=== PATIENT | male | born 1945 | race African-American/Black ===

== ENCOUNTER 2017-03-13 02:08 | Emergency (ER) | payer BC, OTHER ==
[~2017-03-13] VITALS: Ht 180.3 cm; Wt 131.5 kg
[2017-03-13 02:08] VITALS: BP_SYST 195
[~2017-03-13 02:08] MED LIST: ALBUTEROL
[2017-03-13 02:45] VITALS: BP_SYST 178
== END 2017-03-13 02:45 | disposition home or self-care (01) ==
LOC: SED 02:08
DX: K11.8 Other diseases of salivary glands (principal); J45.909 Unspecified asthma, uncomplicated
CPT/HCPCS: 99283

== ENCOUNTER 2018-02-19 22:31 | Emergency (ER) | payer BC, OTHER ==
[~2018-02-19] VITALS: Ht 180.3 cm; Wt 124.7 kg
[2018-02-19 22:39] VITALS: BP_SYST 160
[2018-02-19] MEDS: MORPHINE 4 MG/ML INJ. SYRINGE IM ONE (23:04)
[2018-02-20] MEDS: DIAZEPAM 5 MG TABLET (VALIUM) PO ONE (00:22)
[2018-02-20 00:23] VITALS: BP_SYST 160
== END 2018-02-20 00:23 | disposition home or self-care (01) ==
LOC: SED 22:31
DX: M79.604 Pain in right leg (principal); J45.909 Unspecified asthma, uncomplicated; I10 Essential (primary) hypertension
CPT/HCPCS: 93971; 96372; 99284; J2270

== ENCOUNTER 2019-02-07 18:00 | Emergency (ER) | payer BC, OTHER ==
[~2019-02-07] VITALS: Ht 180.3 cm; Wt 120.2 kg
[2019-02-07 18:22] VITALS: BP_SYST 168
--- NOTE | 2019-02-07 18:27 | NUR ---
Patient to [facility] chair for evaluation. Side rails up. Report given to perico Scales
--- NOTE | 2019-02-07 18:27 | NUR ---
LORIE George at bedside examining patient.
--- NOTE | 2019-02-07 18:30 | NUR ---
Patient transported to radiology via WC, accompanied by rad.
--- NOTE | 2019-02-07 18:43 | NUR ---
pt arrives from home w/ c/o chest congestion and cough x 1 week. Pt is currently afebrile. Nop other c/o at the moment
--- NOTE | 2019-02-07 19:00 | NUR ---
Patient given written and verbal discharge instructions and verbalizes understanding. ER MD discussed with patient the results and treatment provided. Patient in stable condition. ID arm band removed. Rx of Promethazine w/Codeine given. Patient educated on pain management and to follow up with PMD. Pain Scale 0. Opportunity for questions provided and answered. Medication side effect fact sheet provided.
== END 2019-02-07 19:00 | disposition home or self-care (01) ==
LOC: SED 18:00
DX: J06.9 Acute upper respiratory infection, unspecified (principal); J45.909 Unspecified asthma, uncomplicated; I10 Essential (primary) hypertension; E07.9 Disorder of thyroid, unspecified
CPT/HCPCS: 71045; 99283

== ENCOUNTER 2019-03-16 05:59 | Emergency (ER) | payer OTHER ==
[~2019-03-16] VITALS: Ht 180.3 cm; Wt 74.8 kg
[2019-03-16 06:10] VITALS: BP_SYST 160
--- NOTE | 2019-03-16 06:10 | NUR ---
Pt placed to ER bed 07. Pt c/o stiffness to neck, back, and shoulder x 1 week. Pt unable to sleep r/t pain. Pt states pain is better when sitting up or moving around. Lying flat makes pain worse. Denies injury or trauma.
--- NOTE | 2019-03-16 06:15 | NUR ---
Dr. George at bedside.
[2019-03-16 06:30] VITALS: BP_SYST 152
--- NOTE | 2019-03-16 06:30 | NUR ---
Patient given written and verbal discharge instructions and verbalizes understanding. ER MD discussed with patient the results and treatment provided. Patient in stable condition. ID arm band removed. Rx of Flexeril and Naproxen given. Patient educated on pain management and to follow up with PMD. Pain Scale 2/10. Opportunity for questions provided and answered. Medication side effect fact sheet provided.
== END 2019-03-16 06:30 | disposition home or self-care (01) ==
LOC: SED 05:59
DX: S16.1XXA Strain of muscle, fascia and tendon at neck level, initial encounter (principal); J45.909 Unspecified asthma, uncomplicated; I10 Essential (primary) hypertension; X50.9XXA Other and unspecified overexertion or strenuous movements or postures, initial encounter; Y93.89 Activity, other specified; Y92.89 Other specified places as the place of occurrence of the external cause; Y99.8 Other external cause status
CPT/HCPCS: 99283

== ENCOUNTER 2019-05-05 18:41 | Emergency (ER) | payer OTHER ==
[~2019-05-05] VITALS: Ht 180.3 cm; Wt 117.9 kg
[2019-05-05 19:34] VITALS: BP_SYST 156
[2019-05-05] MEDS ORDERED: ALBU8.5H8 INH (19:43)
[2019-05-05] MEDS ORDERED: AMLO5TAB4 PO (19:43)
[2019-05-05] MEDS ORDERED: LEVO100T9 PO (19:43)
--- NOTE | 2019-05-06 00:35 | NUR ---
Pt ambulatory to bed 4 for evaluation
--- NOTE | 2019-05-06 00:44 | NUR ---
Dr. Dugan bedside for pt eval
--- NOTE | 2019-05-06 00:50 | NUR ---
Pt BIB family to ED seeking evaluation of a 4-5 week history of persistent mild, non-radiating, sinus pain associated with sore throat, nasal congestion, and cough productive of clear phlegm. He reports that he has been using Flonase without improvement of his symptoms. He also reports that he sleeps with the heater on which makes his symptoms feel worse
[2019-05-06 01:10] VITALS: BP_SYST 148
--- NOTE | 2019-05-06 01:10 | NUR ---
Patient given written and verbal discharge instructions and verbalizes understanding. ER MD discussed with patient the results and treatment provided. Patient in stable condition. ID arm band removed. Patient educated on pain management and to follow up with PMD. Pain Scale 0/10 Opportunity for questions provided and answered.
== END 2019-05-06 01:10 | disposition home or self-care (01) ==
LOC: SED 18:41
DX: J32.9 Chronic sinusitis, unspecified (principal); R09.81 Nasal congestion; J45.909 Unspecified asthma, uncomplicated; I10 Essential (primary) hypertension; E03.9 Hypothyroidism, unspecified; Z79.899 Other long term (current) drug therapy
CPT/HCPCS: 99281; 99283

== ENCOUNTER 2020-06-02 00:48 | Emergency (ER) | payer OTHER ==
[~2020-06-02] VITALS: Ht 177.8 cm; Wt 108.9 kg
[~2020-06-02 00:48] MED LIST changes: +ALBU8.5H8 INH; -ALBUTEROL; +AMLO5TAB4 PO; +LEVO100T9 PO
[2020-06-02 01:00] VITALS: BP_SYST 150
[2020-06-02] MEDS ORDERED: NACL 0.9% 1,000 ML IV ONE (01:15)
[2020-06-02 01:38] LABS: BASOPHILS % (AUTO) 0.8 % (0.0-2.0); EOSINOPHILS # (AUTO) 0.1 K/uL (0.0-0.4); EOSINOPHILS % (AUTO) 2.2 % (0.0-4.0); HEMATOCRIT 42.7 % (36-54); LYMPHOCYTES # (AUTO) 1.6 K/uL (1.0-5.5); LYMPHOCYTES % (AUTO) 28.2 % (20.5-51.5); MEAN CORPUSCULAR HEMOGLOBIN 30 pg (27-31); MEAN CORPUSCULAR HGB CONC 33 % (32-36); MEAN CORPUSCULAR VOLUME 90 fL (79.0-98.0); MONOCYTES # (AUTO) 0.6 K/uL (0.0-1.0); MONOCYTES % (AUTO) 11.1 % (1.7-9.3); NEUTROPHILS # (AUTO) 3.2 K/uL (1.8-7.7); NEUTROPHILS % (AUTO) 57.7 % (40.0-70.0); PLATELET COUNT (AUTO) 199 K/uL (130-430); RED BLOOD CELL COUNT(AUTO) 4.72 MIL/uL (4.2-6.2); RED CELL DISTRIBUTION WIDTH 12.8 % (9.0-15.0); WHITE BLOOD COUNT (AUTO) 5.6 K/uL (4.8-10.8)
[2020-06-02 01:50] LABS: ANION GAP 8 (5-15); CALCIUM 8.8 mg/dL (8.4-11.0); CHLORIDE 103 mmol/L (98-107); CREATININE 1.04 mg/dL (0.55-1.30); GLUCOSE 123 mg/dL (70-99); POTASSIUM 4.3 mmol/L (3.5-5.1); SODIUM SERUM 137 mmol/L (136-145); UREA NITROGEN, BLOOD 14 mg/dL (8-21)
[2020-06-02 02:04] LABS: ALANINE AMINOTRANSFERASE 31 U/L (12-78); ALBUMIN 3.7 g/dL (3.4-4.8); ASPARTATE AMINOTRANSFERASE 22 U/L (10-37); THYROID STIMULATING HORMONE 0.55 uIu/mL (0.36-3.74); TOTAL BILIRUBIN 0.7 mg/dL (0.0-1.0)
[2020-06-02 02:13] LABS: BILIRUBIN,URINE NEGATIVE (NEGATIVE); BLOOD, URINE NEGATIVE (NEGATIVE); CLARITY/URINE CLEAR (CLEAR); COLOR,URINE YELLOW (YELLOW); GLUCOSE,URINE NEGATIVE (NEGATIVE); KETONES,URINE NEGATIVE (NEGATIVE); LEUKOCYTE ESTERASE ,URINE TRACE (NEGATIVE); NITRITE, URINE NEGATIVE (NEGATIVE); PROTEIN URINE NEGATIVE (NEGATIVE); UROBILINOGEN,URINE 0.2 (0.2-1.0)
[2020-06-02 02:27] LABS: BACTERIA,URINE FEW /HPF (None Seen); RBC,URINE NONE SEEN /HPF (0-3)
[2020-06-02 02:32] LABS: BARBITURATE, URINE NEGATIVE (NEG <=200); BENZODIAZEPINE, URINE NEGATIVE (NEG <=150); CANNABINOID, URINE NEGATIVE (NEG <=50); COCAINE, URINE NEGATIVE (NEG <=150); METHAMPHETAMINES SCREEN,URINE NEGATIVE (NEG <=500); OPIATE, URINE NEGATIVE (NEG <=100); PHENCYCLIDINE SCREEN,URINE NEGATIVE (NEG <=25); UR TRICYCLIC ANTIDEPRESSANTS NEGATIVE (NEG <=300); URINE AMPHETAMINE NEGATIVE (NEG <=500); URINE METHADONE NEGATIVE (NEG <=200); URINE OXYCODONE SCREEN NEGATIVE (NEG <=100); URINE PROPOXYPHENE SCREEN NEGATIVE (NEG <=300)
[2020-06-02] MEDS ORDERED: cephALEXin 500 MG CAPSULE PO ONE (03:15)
[2020-06-02] MEDS ORDERED: cephALEXin 500 MG CAPSULE ONE (03:19)
[2020-06-02] MEDS ORDERED: CEPH250C PO (03:19)
[2020-06-02 03:27] VITALS: BP_SYST 141
== END 2020-06-02 03:27 | disposition home or self-care (01) ==
LOC: SED 00:48
DX: E86.0 Dehydration (principal); N39.0 Urinary tract infection, site not specified; I10 Essential (primary) hypertension; J45.909 Unspecified asthma, uncomplicated; E03.9 Hypothyroidism, unspecified; N40.0 Benign prostatic hyperplasia without lower urinary tract symptoms; Z79.899 Other long term (current) drug therapy
CPT/HCPCS: 36415; 71045; 80053; 80307; 81000; 84443; 84484; 85025; 87086; 93005; 96360; 99285; J7030

== ENCOUNTER 2021-05-13 07:47 | Emergency (ER) | payer OTHER ==
[~2021-05-13] VITALS: Ht 180.3 cm; Wt 115.7 kg
[2021-05-13 07:47] VITALS: BP_SYST 158
[~2021-05-13 07:47] MED LIST changes: +CEPH250C PO
[2021-05-13] MEDS ORDERED: NACL 0.9% 1,000 ML IV ONE (08:30)
[2021-05-13 09:07] LABS: BASOPHILS # (AUTO) 0.2 K/uL (0.0-0.2); BASOPHILS % (AUTO) 4.3 % (0.0-2.0); EOSINOPHILS # (AUTO) 0.1 K/uL (0.0-0.4); EOSINOPHILS % (AUTO) 1.8 % (0.0-4.0); HEMOGLOBIN 13.8 g/dL (14.0-18.0); LYMPHOCYTES # (AUTO) 0.5 K/uL (1.0-5.5); LYMPHOCYTES % (AUTO) 12.9 % (20.5-51.5); MEAN CORPUSCULAR HEMOGLOBIN 30 pg (27-31); MEAN CORPUSCULAR HGB CONC 33 % (32-36); MEAN CORPUSCULAR VOLUME 90 fL (79.0-98.0); MONOCYTES # (AUTO) 0.5 K/uL (0.0-1.0); MONOCYTES % (AUTO) 11.9 % (1.7-9.3); NEUTROPHILS # (AUTO) 2.7 K/uL (1.8-7.7); NEUTROPHILS % (AUTO) 69.1 % (40.0-70.0); PLATELET COUNT (AUTO) 219 K/uL (130-430); RED BLOOD CELL COUNT(AUTO) 4.69 MIL/uL (4.2-6.2); RED CELL DISTRIBUTION WIDTH 12.1 % (9.0-15.0); WHITE BLOOD COUNT (AUTO) 3.8 K/uL (4.8-10.8)
[2021-05-13 09:42] LABS: ANION GAP 11 (5-15); CALCIUM 9.3 mg/dL (8.4-11.0); CHLORIDE 100 mmol/L (98-107); CREATININE 0.98 mg/dL (0.55-1.30); GLUCOSE 112 mg/dL (70-99); POTASSIUM 4.1 mmol/L (3.5-5.1); SODIUM SERUM 134 mmol/L (136-145); UREA NITROGEN, BLOOD 15 mg/dL (8-21)
[2021-05-13 09:51] LABS: ALANINE AMINOTRANSFERASE 28 U/L (12-78); ALBUMIN 3.8 g/dL (3.4-4.8); ASPARTATE AMINOTRANSFERASE 26 U/L (10-37)
[2021-05-13] MEDS ORDERED: GUAI600T45 PO (09:59)
[2021-05-13] MEDS ORDERED: BENZ100C92 PO (09:59)
[2021-05-13 10:08] VITALS: BP_SYST 140
== END 2021-05-13 10:08 | disposition home or self-care (01) ==
LOC: SED 07:47
DX: J06.9 Acute upper respiratory infection, unspecified (principal); R00.0 Tachycardia, unspecified; I10 Essential (primary) hypertension; E03.9 Hypothyroidism, unspecified; J45.909 Unspecified asthma, uncomplicated; Z79.899 Other long term (current) drug therapy
CPT/HCPCS: 36415; 71045; 80053; 83735; 84484; 85025; 93005; 96360; 99285; J7030

== ENCOUNTER 2023-11-21 17:50 | Emergency (ER) | payer OTHER ==
[~2023-11-21] VITALS: Ht 180.3 cm; Wt 115.7 kg
[~2023-11-21 17:50] MED LIST changes: +BENZ100C92 PO; +GUAI600T45 PO
[2023-11-21 18:23] VITALS: BP_SYST 178; PULSE 55; RESP 18; TEMP 97.9; O2SAT 97
== END 2023-11-21 19:17 | disposition left against medical advice (07) ==
LOC: SED 17:50
DX: R05.9 Cough, unspecified (principal); Z53.21 Procedure and treatment not carried out due to patient leaving prior to being seen by health care provider

== ENCOUNTER 2023-12-04 07:30 | Emergency (ER) | payer OTHER ==
[~2023-12-04] VITALS: Ht 180.3 cm; Wt 115.7 kg
[2023-12-04 07:34] VITALS: BP_SYST 161; PULSE 66; RESP 18; TEMP 96.2; O2SAT 97
[2023-12-04] MEDS: IPRATROPIUM/ALBUTEROL SULFATE 3 ML AMPUL.NEB (DUONEB) INH ONE (08:52)
[2023-12-04 08:58] LABS: INFLUENZA TYPE A Negative (NEGATIVE); INFLUENZA TYPE B NEGATIVE (NEGATIVE)
[2023-12-04] MEDS ORDERED: PRED20TA PO (09:16)
[2023-12-04 09:58] VITALS: BP_SYST 148; PULSE 72; RESP 18; TEMP 96.2; O2SAT 97
== END 2023-12-04 09:46 | disposition home or self-care (01) ==
LOC: SED 07:30
DX: J45.909 Unspecified asthma, uncomplicated (principal); I10 Essential (primary) hypertension; E03.9 Hypothyroidism, unspecified; N40.0 Benign prostatic hyperplasia without lower urinary tract symptoms; Z20.822 Contact with and (suspected) exposure to COVID-19; Z79.890 Hormone replacement therapy; Z79.899 Other long term (current) drug therapy
CPT/HCPCS: 36415; 71045; 94664; 94760; 99284

== ENCOUNTER 2023-12-26 22:04 | Emergency (ER) | payer OTHER ==
[~2023-12-26] VITALS: Ht 177.8 cm; Wt 115.7 kg
[~2023-12-26 22:04] MED LIST changes: +PRED20TA PO
[2023-12-26 22:10] VITALS: BP_SYST 166; PULSE 65; RESP 16; TEMP 97.8; O2SAT 95
[2023-12-27] MEDS ORDERED: PSEU120T57 PO (01:12)
[2023-12-27 01:33] VITALS: BP_SYST 164; PULSE 64; RESP 16; TEMP 97.9; O2SAT 99
== END 2023-12-27 01:33 | disposition home or self-care (01) ==
LOC: SED 22:04
DX: J45.909 Unspecified asthma, uncomplicated (principal); R09.82 Postnasal drip; R09.81 Nasal congestion; J34.89 Other specified disorders of nose and nasal sinuses; I10 Essential (primary) hypertension; E03.9 Hypothyroidism, unspecified; N40.0 Benign prostatic hyperplasia without lower urinary tract symptoms; Z79.52 Long term (current) use of systemic steroids; Z79.899 Other long term (current) drug therapy
CPT/HCPCS: 99282